=== PATIENT | female | born 1960 | race Caucasian/White ===

== ENCOUNTER → 2019-08-09 | Outpatient (CLI) | payer BC ==
[2019-08-09 21:14] LABS: Chol/HDL Ratio 2.79; LDL Cholesterol,Calculated 123.6 mg/dL (0.0-131.0); VLDL Calculation 19.4 mg/dL (5.00-40.00)
[2019-08-09 21:40] LABS: T4, Free (Free Thyroxine) 0.8 ng/dL (0.80-1.80)
[2019-08-09 21:43] LABS: Hemoglobin A1C 5.8 % (4.0-6.0)
== END | disposition home or self-care (01) ==
LOC: LABWHC1 12:26
PROVIDERS: ATTEND Family Medicine
DX: E78.00 Pure hypercholesterolemia, unspecified (principal); R79.89 Other specified abnormal findings of blood chemistry; E03.9 Hypothyroidism, unspecified; R73.03 Prediabetes
CPT/HCPCS: 36415; 80061; 82947; 83036; 83970; 84439; 84443

== ENCOUNTER → 2020-08-07 | Outpatient (CLI) | payer BC ==
[2020-08-07 10:04] LABS: Basophils % (A) 1 %; Eosinophils # (A) 0.2 k/uL (0-0.7); Eosinophils % (A) 4 %; HCT 41.9 % (34.0-46.0); HGB 13.3 gm/dL (11.4-16.0); Lymphocytes # (A) 2.1 k/uL (1.0-4.8); Lymphocytes % (A) 40 %; MCH 30.5 pg (25.0-35.0); MCHC 31.6 g/dL (31.0-37.0); MCV 96.4 fL (80.0-100.0); Mean Platelet Volume 7.7; Monocytes # (A) 0.2 k/uL (0-1.0); Monocytes % (A) 4 %; Neutrophils # (A) 2.6 k/uL (1.3-7.7); Neutrophils % (A) 50 %; Platelet Count 303 k/uL (150-450); RBC 4.35 m/uL (3.80-5.40); RDW 12.8 % (11.5-15.5); WBC 5.3 k/uL (3.8-10.6)
[2020-08-07 15:35] LABS: African American GFR (CKD) 93.5 (60.0-200.0); Albumin 4.4 g/dL (3.80-4.90); Albumin/Globulin Ratio 2.1 (1.60-3.17); Anion Gap 7.6 mmol/L (4.00-12.00); BUN/Creat Ratio 27.5 Ratio (12.00-20.00); Calcium 9.8 mg/dL (8.7-10.3); Carbon Dioxide 28.4 mmol/L (21.6-31.8); Chol/HDL Ratio 2.97; Globulin 2.1 g/dL (1.6-3.3); LDL Cholesterol,Calculated 152.4 mg/dL (0.0-131.0); Non-African American GFR(CKD) 80.7 (60.0-200.0); Potassium 4.8 mmol/L (3.5-5.5); Total Bilirubin 0.5 mg/dL (0.2-1.2); Total Protein 6.5 g/dL (6.2-8.2); VLDL Calculation 20.6 mg/dL (5.00-40.00)
[2020-08-07 15:43] LABS: T4, Free (Free Thyroxine) 1.2 ng/dL (0.80-1.80)
[2020-08-07 15:45] LABS: Ferritin 26.7 ng/mL (10.0-291.0)
[2020-08-07 18:58] LABS: Hemoglobin A1C 5.5 % (4.0-6.0)
== END | disposition home or self-care (01) ==
LOC: LABWHC1 09:11
PROVIDERS: ATTEND Family Medicine
DX: E66.09 Other obesity due to excess calories (principal); R53.83 Other fatigue; R73.03 Prediabetes
CPT/HCPCS: 36415; 80053; 80061; 82306; 82533; 82607; 82728; 83036; 84439; 84443; 85025

== ENCOUNTER → 2020-12-06 | Outpatient (CLI) | payer OTHER ==
--- NOTE | 2020-12-06 16:03 | XR ---
Cervical spine HISTORY: Z 98.1, left neck pain and numbness 7 views of the cervical spine, no comparisons submitted There is multilevel spondylosis. Bone mineralization is reduced. Cervical vertebral bodies show prese rved height and alignment. Intervertebral spacing block present at C4-5. Screws present at the space of C3-4. There are facet arthropathy changes. Loss of disc height present greatest at C2-3, C5-6 and C6-7, no evident listhesis on flexion and extension views. Oblique images show some foraminal encroac hment at C2-3, C3-4, C5-6 and C6-7 on the left, C3-4, C4-5 and C5-6 and C6-7 on the right. There are dense atherosclerotic vascular calcifications suspected in the carotid artery distribution. C7-T1 not well seen. IMPRESSION: Postop changes. Osteopenia. Degenerative disc disease and multilevel foraminal encroachme nt. Additional findings above.
== END | disposition home or self-care (01) ==
LOC: RADXRMAIN 14:57
PROVIDERS: ATTEND Neurological Surgery
DX: M50.30 Other cervical disc degeneration, unspecified cervical region (principal); M50.80 Other cervical disc disorders, unspecified cervical region; M47.812 Spondylosis without myelopathy or radiculopathy, cervical region; M85.88 Other specified disorders of bone density and structure, other site; Z98.1 Arthrodesis status
CPT/HCPCS: 72052